=== PATIENT | female | born 1935 | race Caucasian/White ===

== ENCOUNTER 2017-03-30 05:23 | Day surgery (SDC) | payer OTHER, BC ==
[~2017-03-30] VITALS: Ht 162.6 cm; Wt 69.9 kg
--- NOTE | ~2017-03-30 | H ---
[facility] [address] [address] HISTORY AND PHYSICAL Name: SLICK SHOOK Room #: 150-11 [facility]#: [id number] Admission: 03/30/17 Attend Phys: Christophe Grider MD Discharge: Date of : 39 Report #: [id number] THIS REPORT FOR: //name// CC: Joe Grider DATE OF SERVICE: 03/30/2017 SURGEON: Christophe Grider M.D. PREOPERATIVE DIAGNOSES: 1. Left submandibular sialadenitis. 2. Left submandibular gland sialolithiasis. HISTORY OF PRESENT ILLNESS: The patient is a 81-year-old female referred for otolaryngic evaluation of recurrent angioedema floor of mouth. The symptoms had begun in January when she was about to take a train ride to [place]. This was first noticed with some numbness and tingling on the upper lip. She was in the Emergency Room at [facility]. She was told that this was an "allergic response." She was treated with Benadryl and the swelling improved. She took a trip [place] and later that night began noticing swelling under her tongue. This began to be fairly significant. She presented to the Emergency Department at [facility]. She was told that this was angioedema and at that point, treated with steroids and antihistamines. CT scan was done of the neck. She was initially told that there was no problem and returned back to [place]. Later, she was told by Reji that there was a finding on the CT scan of a left submandibular sialolith. She was also told that she had a possible cerebral aneurysm. This precipitated an MR angiogram done 12/14/2016. These were negative for an aneurysm. The patient was on losartan as an antihypertensive. She had taken lisinopril in the past, but this had been discontinued. She is aware that ARBs are associated with angioedema. The patient followed up after a CT scan that did show a submandibular duct stone as well as a 1.4 cm nodule in the upper pole of the thyroid. Fine needle aspiration was done 02/02/2017 showing a [place] category 2 benign nodule. She was biochemically euthyroid. In light of the above because of the recurrent nature of this, recommendations were made for sialendoscopy and possible excision of the gland. PAST MEDICAL HISTORY: Significant for angioedema, thyroid mass, thyroid nodule, hypertension. 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 CURRENT MEDICATIONS: Include losartan 50 mg a day, Valium 5 mg a day, Benadryl [address] [address] HISTORY AND PHYSICAL Name: SLICK SHOOK Room #: 150-11 [facility] M.R.#: [id number] Admission: 03/30/17 Attend Phys: Christophe Grider MD Discharge: Date of : 39 Report #: [id number] and prednisone 10 mg. ALLERGIES: None. SOCIAL HISTORY: She uses alcohol about 3 times a week, having 1-2 drinks per occasion. She does not currently use tobacco, and is a never smoker. REVIEW OF SYSTEMS: Negative except as above on a 12-point review of systems PHYSICAL EXAMINATION: GENERAL: Showed a well-developed 81-year-old female, alert and oriented x 3. She is awake and alert. NASAL: Midline septum. No polyps, no sinus percussive tenderness. ORAL CAVITY: No mucosal lesions. There is some fullness in the left floor of mouth with a possible stone present. This is difficult to palpate. There is no purulence from the submandibular duct. Hypopharynx is normal. NECK: Shows some asymmetric enlargement of left submandibular gland, otherwise no abnormal adenopathy or other masses. NEUROLOGIC: Cranial nerves 2 through 12 intact. Motor and sensory and cerebellar exams are normal. ASSESSMENT: 1. Chronic left submandibular sialadenitis. 2. Left submandibular sialolithiasis. PLAN: Left submandibular sialendoscopy with possible removal of stone. If this is not possible, removal of the left submandibular gland and duct. I have discussed the procedure, indications, alternatives, benefits, potential risks with the patient, she understands and desires to proceed. By: [id number] Christophe Grider MD /nt
--- NOTE | ~2017-03-30 | S ---
[facility] [place] [address] [place] [address] SURGICAL PATH RPT PROCEDURE Name: SLICK SHOOK Room #: [facility]P [facility] M..#: [id number] Admission: 03/30/17 Date of : 39 Discharge: 03/30/17 Report #: [id number] Path Case #: [id number] PATHOLOGY REPORT COLLECTION DATE: 03/30/2017 RECEIVED DATE: 03/30/2017 SUBMITTING PHYS: Dr. Christophe Grider OTHER PHYS: Dr. Joe Rahman SPECIMEN(S) RECEIVED: A.Left submandibular gland and duct * * * * * * * * * * * * FINAL DIAGNOSIS: Salivary gland "left submandibular gland and duct": - Dilated ducts with inspissated calcified material surrounded by fibrosis and mild chronic inflammation. - There is no evidence of atypia or malignancy. (SHA:mm; 04/01/2017) PATHOLOGIST: Kelvin Pascual M.D. REPORT ELECTRONICALLY SIGNED BY: Kelvin Pascual M.D. DATE/TIME: 04/01/2017 14:13 * * * * * * * * * * * * GROSS PATHOLOGY: The specimen is received in formalin labeled "Slick Shook, left submandibular gland and duct". Received is a 10 g segment of light garrett glandular tissue measuring 4.8 x 2.8 x 2.1 cm in greatest dimensions and an elongate segment of duct tissue measuring 4.5 cm in length by up to 0.4 cm in diameter. The surgical margin is inked. Sectioning reveals light garrett, glandular cut surfaces throughout with no grossly distinct nodules or lesions. Alternating sections are submitted in cassettes A1 through A5, was sections of the duct submitted in cassette A1. (CAA; 03/31/2017) CLINICAL HISTORY: Sialolith left submandibular duct INITIAL CPT CODE(S): A; 99230 Professional [facility] [address], [place], [place] [address] [place] [address] [address] [place] [address] SURGICAL PATH RPT PROCEDURE Name: SLICK SHOOK Room #: [facility].#: [id number] Admission: 03/30/17 Date of : 39 Discharge: 03/30/17 Report #: [id number] Path Case #: [id number] Technical [facility] performed by [facility] at [address] [place] [address], [facility] [address] [address]. [place] [address] PHONE: [phone] DIRECTOR: Panchito Sanchez M.D. * * * END OF REPORT * * *
--- NOTE | ~2017-03-30 | O ---
[facility] [place] [address] [address] [place] [address] OPERATIVE REPORT Name: SLICK SHOOK Room #: 150-11 [facility]#: [id number] Admission: 03/30/17 Attend Phys: Christophe Grider MD Discharge: Date of : 39 Report #: [id number] THIS REPORT FOR: //name// CC: JASE Grider DATE OF SERVICE: 03/30/2017 SURGEON: Christophe Grider MD PREOPERATIVE DIAGNOSIS: 1. Left submandibular sialadenitis. 2. Left submandibular sialolithiasis. POSTOPERATIVE DIAGNOSIS: 1. Left submandibular sialadenitis. 2. Left submandibular sialolithiasis. OPERATION PERFORMED: 1. Left submandibular sialendoscopy. 2. Left submandibular gland excision. 3. Left submandibular duct excision, intraoral. INDICATIONS: The patient is a 81-year-old female referred by Dr. Rahman with ongoing sialadenopathy and sialolithiasis. This had been felt to be an episode of angioedema at an evaluation at the [facility] in [place] after recent response. The patient has had this frequently. CT examination revealed a sialolith in the left submandibular duct with no other masses or adenopathy. Because of the recurrent nature of this, options of sialendoscopy were discussed with backup of excision of the gland and duct if this failed to remove the problem. This was scheduled at [facility] as the equipment was not available at [facility]. DESCRIPTION OF PROCEDURE: The patient was brought to the operating room and placed supine on the operating table. After adequate general anesthesia was achieved via nasotracheal intubation, she was turned 180 degrees. As a separate part of the procedure, the [employer] nerve integrity monitor was applied to the left face for continuous intraoperative monitoring of the facial nerve. Needle electrodes were placed in orbicularis bautista and orbicularis oculi muscles with ground electrodes in the soft tissue overlying the sternum and contralateral shoulder. Electrode resistance and impedance was measured and [facility] [address] [place] [address] OPERATIVE REPORT Name: SLICK SHOOK Room #: 150-11 [facility].#: [id number] Admission: 03/30/17 Attend Phys: Christophe Grider MD Discharge: Date of : 39 Report #: [id number] found to be acceptable. Threshold and stimulus intensity parameters were set and the patient was monitored for the entirety of the case for approximately 2 hours in order to locate and protect the facial nerve. She was prepped and draped in a sterile fashion. Procedure began with the sialendoscopy. Cheek retractors were placed followed by biteblock. Examination was made of the left floor of mouth. Palpation seemed to reveal a firmness in the floor of mouth consistent with a small stone, but this was difficult to palpate. Punctal dilators were used to expand the submandibular duct and then Storz sialendoscope was then placed through the dilated punctum. Examination was made of the duct. This seemed to do fine through the duct, but at some point in the mid duct seemed to transgress through the duct into the soft tissue of the floor of the mouth. Multiple attempts were made to pass this. In addition, an attempt was made to pass this over a guidewire without success because the stone could not be isolated, this was aborted. Attention was then turned to the floor of mouth. Punctal dilator was then replaced into the submandibular duct and then an injection of 1% Xylocaine with 1:100,000 epinephrine was made in the floor of mouth. An incision was then made along the duct and the duct was then dissected, taking the [place]'s duct orifice with the duct itself and dissecting into the floor of mouth. This was dissected down to the underlying genioglossus muscle. Care was taken to identify and avoid the lingual nerve. Once this was done, attention was then turned to the neck. Gloves were changed. The neck had been previously prepped with Betadine in anticipation and had been injected before the beginning of the procedure with 1% Xylocaine with 1:100,000 epinephrine. A linear incision was made in a submandibular relaxed skin tension line. Dissection was made down to the gland. This was easily found. The platysmal muscle was elevated superiorly and inferiorly. The gland was dissected from the soft tissue. The marginal mandibular branch of the facial nerve was identified with probe stimuli and reflected superiorly. Afferent branches of the facial artery and efferent branches to the facial vein were then taken down with Ligaclips and the gland was dissected free, taking care to identify and protect the marginal mandibular branch of the facial nerve. This was dissected free from the soft tissue of the mandible and extended inferiorly. An [employer] was used to retract mylohyoid, the lingual nerve was identified. Its parasympathetic contribution of the gland was then clamped between Ligaclips and divided. The duct was then dissected anteriorly running along the lingual nerve and with careful finger dissection, this was dissected up to the floor of the mouth with pullthrough this delivered the previous dissected duct from the mouth. The whole complex of the gland and duct were then delivered off the field as specimen. Wound was then irrigated. The platysma was closed with interrupted 4-0 Vicryl, 4-0 Vicryl deep dermal sutures were placed and a running [facility] [address] [place] [address] OPERATIVE REPORT Name: SLICK SHOOK Room #: 150-11 [facility]#: [id number] Admission: 03/30/17 Attend Phys: Christophe Grider MD Discharge: Date of : 39 Report #: [id number] subcuticular Prolene on skin. Mastisol and Steri-Strips were applied. Prior to closure, a 10-[place] Caio drain was placed through a separate posterior stab incision, curled into the wound and connected to bulb suction. The drain was sutured in place with 2-0 silk. Mastisol and quarter inch Steri-Strips were applied followed by an OpSite for dressing. Once this was dressed, attention was turned to the mouth, the intraoral incision was then closed with a running lock 4-0 chromic. Complete closure was achieved in the floor of mouth. The wound was then irrigated and suctioned. Assurance was made that the drain did have positive suction on the bulb. At this point, the patient's bite block and cheek retractors were removed. She was returned to anesthesia, awaken without difficulty, returned to recovery in good condition. Sponge and needle counts were correct. There were no complications. Blood loss was about 10 mL. She will be watched till awake and stable, presuming she does well, discharge to home with plans to follow with me in 1 week. Written and verbal discharge instructions and emergency precautions have been given to her family. DISCHARGE MEDICATIONS: Include Clindamycin 300 mg 1 t.i.d. for 10 days, Phenergan suppository 25 mg 1 per rectum q. 4-6 hours p.r.n., hydrocodone/acetaminophen 7.5/325 one to two q. 4-6 hours p.r.n. She is instructed on light activity and a soft diet. By: [id number] 1626 Christophe Grider MD /nt
[~2017-03-30 05:23] MED LIST: BENADRYL25 MG PO; PEPCID20 MG PO; PREDNISONE 10 M10 MG; VALIUM5 MG PO; ZYRTEC10 M4 PO
== END 2017-03-30 17:08 | disposition home or self-care (01) ==
LOC: OR 05:23 → TBA 05:24 → OR 14:45
DX: K11.20 Sialoadenitis, unspecified (principal); K11.5 Sialolithiasis; I10 Essential (primary) hypertension; F41.8 Other specified anxiety disorders; Z90.49 Acquired absence of other specified parts of digestive tract; Z96.642 Presence of left artificial hip joint; Z79.899 Other long term (current) drug therapy; Z98.890 Other specified postprocedural states; Z88.8 Allergy status to other drugs, medicaments and biological substances; Z88.0 Allergy status to penicillin
CPT/HCPCS: 50010; 50101; 50331; 50386; 50398; 52190; 52220; 52225; 56526; 56528; 56760; 62110; 62900; 70005